=== PATIENT | male | born 1950 | race Caucasian/White ===

== ENCOUNTER 2018-02-16 10:24 | Outpatient (CLI) | payer OTHER ==
[2014-09-16 11:34] VITALS: BMI 20.7
== END 2018-02-16 10:25 | disposition home or self-care (01) ==
LOC: RHC-LAB 10:24
PROVIDERS: ATTEND Emergency Medicine
DX: K64.0 First degree hemorrhoids (principal); K62.5 Hemorrhage of anus and rectum; I10 Essential (primary) hypertension; F10.20 Alcohol dependence, uncomplicated; Z12.5 Encounter for screening for malignant neoplasm of prostate
CPT/HCPCS: 36415; 80053; 80061; 84443; 85025

== ENCOUNTER 2018-02-17 12:30 | Outpatient (CLI) ==
[2014-09-16 11:34] VITALS: BMI 20.7
--- NOTE | 2018-02-17 15:43 | DI ---
EXAM: PA and lateral views of the chest HISTORY: Smoking history COMPARISON: Chest Xray from 09/16/2014 FINDINGS: Lungs are clear with no lobar consolidation, failure, large effusion or significant atelec tasis. There is hyperexpansion of the lung jean baptiste. Cardiac and mediastinal silhouettes show no acute abnormality. No acute osseous or soft tissue abnormalities. There is an old left rib fracture which is healed. IMPRESSION: 1. No active disease. 2. Probable chronic obstructive pulmonary disease.
--- NOTE | 2018-02-17 16:03 | CT ---
EXAM: CT abdomen pelvis with contrast TECHNIQUE: Helical axial CT of the abdomen and pelvis was performed with contrast with coronal and s agittal reconstructions. COMPARISON: None HISTORY: Rectal bleeding FINDINGS: There is quite a bit of soft tissue thickening seen involving the rectum with a mass-like appearance. There is some edema also noted in the perirectal fat. There is no obstruction or ileus or free air or focal fluid collection noted. There are no pathologic lymph nodes seen. The liver, spleen, pancreas,and adrenal glands show no acute abnormality. There are pancreatic calcif ications consistent with chronic pancreatitis. Lung bases are well-aerated. There is no hiatal herni a. The gallbladder is normal with no stones or inflammation. There is no biliary or pancreatic ductal dilatation. There are no suspicious renal masses or large cysts and no hydronephrosis. There are no kidney stones . There are renal vascular calcifications seen on the left. Both ureters demonstrate normal course a nd caliber. There is no filling defect in the urinary bladder. There is prostatomegaly. The appendix is not definitely identified. There are multiple non inflamed colonic diverticula. Ther e are bilateral inguinal hernias. Hernia on the right contains fat wall the hernia on the left conta ins a few loops of bowel and fat with no obstruction or incarceration. There is extreme calcification of the aorta and pelvic vessels. There are no acute osseous abnormalities. IMPRESSION: 1. Probable rectal mass as described above. Recommend further evaluation. 2. Extremely advanced atherosclerosis. 3. Chronic pancreatitis. 4. Bilateral inguinal hernias. 5. Other findings as above. Unexpected finding (1)
== END 2018-02-17 12:31 | disposition home or self-care (01) ==
LOC: RAD 12:30
PROVIDERS: ATTEND Emergency Medicine
DX: K62.5 Hemorrhage of anus and rectum (principal); R10.84 Generalized abdominal pain

== ENCOUNTER 2018-04-27 08:51 | Outpatient (CLI) ==
[2014-09-16 11:34] VITALS: BMI 20.7
--- NOTE | 2018-04-27 11:46 | CT ---
EXAM: CT of the chest with contrast History: Rectal cancer. Comparison: CT abdomen pelvis 04/27/2018 Technique: Multiplanar CT images through the thorax were obtained following administration of IV cont rast Findings: Heart size is normal. Trace anterior pericardial fluid. Coronary calcifications. No tho racic aortic aneurysm. No axillary lymphadenopathy. 2.8 cm x 1.6 cm lymph node within the AP window of the mediastinum. No pathologically enlarged hilar lymph nodes. Emphysema. Consolidation. No pl eural fluid and no pneumothorax. 8 mm cavitary nodule within the left upper lobe. Details in the upper abdomen, please see dedicated CT abdomen pelvis done on the same day. No acute osseous abnormalities. Impression: 1. 8 mm cavitary nodule within the left upper lobe is suspicious for metastasis. 2. Abnormally enlarged mediastinal lymph node also suspicious for metastasis. 3. Emphysema. 4. Coronary artery disease
--- NOTE | 2018-04-27 11:58 | CT ---
EXAM: CT of the abdomen pelvis with contrast History: Rectal cancer. Comparison: Chest CT 04/27/2018, CT abdomen pelvis 02/17/2018 Technique: Multiplanar CT images through the abdomen pelvis were obtained following administration o f IV contrast Findings: For details in the lower lungs, please see dedicated CT chest done on the same day. No ac [place] osseous abnormalities. Atherosclerotic vascular calcifications. No discrete gallstones identified by CT. No focal liver is . No change in the pancreatic calcifications consistent with chronic pancreatitis. 8 mm cystic lesi on within the pancreatic head is not clearly seen on the prior study. Adrenal glands are unremarkabl e. No renal masses. The liver is probably fatty. A few borderline dilated loops of small bowel but no specific evidence for small bowel obstruction. Stable nonspecific mild thickening of the anterior bladder wall. Free air and no ascites. Fat-containing right inguinal hernia. Prostate is mildly en larged. 3.9 cm x 6.0 cm irregularly enhancing low rectal tumor extending to involve the anal region. No pathologically enlarged lymph nodes are seen within the abdomen or pelvis. Impression: 1. Malignant appearing low rectal tumor. 2. Chronic pancreatitis. 3. No lymphadenopathy within the abdomen or pelvis. 4. 8 mm cystic lesion within the pancreatic head was not clearly seen on the prior study. Close att ention to on follow-up recommended. 5. Probable hepatic steatosis. 6. No change in the mild anterior bladder wall thickening. 7. A few borderline dilated loops of small bowel but no specific evidence for bowel obstruction. 8. Atherosclerotic vascular disease. 9. Mild prostatic enlargement
== END 2018-04-27 08:52 | disposition home or self-care (01) ==
LOC: RAD 08:51
PROVIDERS: ATTEND Internal Medicine Medical Oncology
DX: C20 Malignant neoplasm of rectum (principal); R63.4 Abnormal weight loss; R93.5 Abnormal findings on diagnostic imaging of other abdominal regions, including retroperitoneum; K62.89 Other specified diseases of anus and rectum; K62.9 Disease of anus and rectum, unspecified; K62.5 Hemorrhage of anus and rectum; R14.3 Flatulence; F10.10 Alcohol abuse, uncomplicated; Z72.0 Tobacco use; Z87.19 Personal history of other diseases of the digestive system
CPT/HCPCS: 36415; 80053; 80074; 81001; 82378; 82607; 82746; 83540; 83550; 84443; 85025; 85610; 85730; 87389

== ENCOUNTER 2018-05-27 09:19 | Outpatient (CLI) ==
[2014-09-16 11:34] VITALS: BMI 20.7
== END 2018-05-27 09:20 | disposition home or self-care (01) ==
LOC: LAB 09:19
PROVIDERS: ATTEND Internal Medicine Medical Oncology
DX: Z01.810 Encounter for preprocedural cardiovascular examination (principal); Z01.812 Encounter for preprocedural laboratory examination; C20 Malignant neoplasm of rectum; R59.0 Localized enlarged lymph nodes; I10 Essential (primary) hypertension
CPT/HCPCS: 36415; 80053; 85025; 93005; 93010

== ENCOUNTER 2019-01-05 00:44 | Emergency (ER) ==
[2019-01-05 00:56] VITALS: BP 169/83; TEMP 97.8; BMI 20.8
--- NOTE | 2019-01-05 01:20 | ED.PDOC ---
General ED Provider: Dr. JT PEÑA-ER Chief Complaint: Non-specific Complaint Stated Complaint: pulled out needle for chemo for rectal cancer Time Seen by Physician: 00:50 Mode of Arrival: Walk-In Information Source: Patient Exam Limitations: No limitations Primary Care Provider: TAMEKA BYERS Nursing and Triage Documentation Reviewed and Agree: Yes Does patient meet sepsis criteria?: No System Inflammatory Response Syndrome: Not Applicable Sepsis Protocol: For patient's 13 years and over: Temp is 96.8 and below OR 101 and greater Pulse >90 BPM Resp >20/minute Acutely Altered Mental Status Are patient's symptoms suggestive of a new infection, such as: -Pneumonia -Skin, Soft Tissue -Endocarditis -UTI -Bone, Joint Infection -Implantable Device -Acute Abdominal Infection -Wound Infection -Meningitis -Blood Stream Catheter Infection -Unknown Skin Complaint Exam - Skin/Soft Tissue Complaint/Exam Onset/Duration: this morning Symptoms Are: Still present Initial Severity: Mild Current Severity: Mild Character: Denies: Redness, Swelling, Raised, Painful Aggravating: Reports: None Alleviating: Reports: None Associated Signs and Symptoms: Denies: Fever, Chills, Itching, Drainage, Bruising, Tenderness, Red streaks, Joint swelling Related Surgical History: Reports: In-Dwelling Med. Device Recent Exposure to Others w/Similar Symptoms: No Skin Findings: Present: Normal findings Joint Tenderness Present: No Review of Systems - Review Of Systems Constitutional: Reports: No symptoms Eyes: Reports: No symptoms Ears, Nose, Mouth, Throat: Reports: No symptoms Respiratory: Reports: No symptoms Cardiac: Reports: No symptoms GI: Reports: No symptoms : Reports: No symptoms Musculoskeletal: Reports: No symptoms Skin: Reports: No symptoms Neurological: Reports: No symptoms Endocrine: Reports: No symptoms Hematologic/Lymphatic: Reports: No symptoms All Other Systems: Reviewed and Negative Past Medical History - Past Medical History Previously Healthy: Yes Endocrine: Reports: Unknown Cardiovascular: Reports: Unknown Respiratory: Reports: Unknown Hematological: Reports: Unknown Gastrointestinal: Reports: Unknown Genitourinary: Reports: Unknown Neuro/Psych: Reports: Unknown Musculoskeletal: Reports: Unknown Cancer: Reports: Unknown - Surgical History General Surgical History: Reports: Unknown - Family History Family History: Reports: Unknown - Social History Smoking Status: Current every day smoker, Light tobacco smoker Hx Substance Use: No Alcohol Screening: Occasionally - Immunizations Tetanus Shot up to Date: No (DOES NOT TAKE) Physical Exam - Physical Exam Appearance: Well-appearing, No pain distress, Well-nourished Eyes: BECCA, EOMI, Conjunctiva clear ENT: Ears normal, Nose normal, Oropharynx normal Neck: Supple Respiratory: Airway patent, Breath sounds clear, Breath sounds equal, Respirations nonlabored Cardiovascular: RRR, Pulses normal, No rub, No murmur GI/: Soft, Nontender, No masses, Bowel sounds normal, No Organomegaly Musculoskeletal: Normal strength, ROM intact, No edema, No calf tenderness Skin: Warm, Dry, Normal color Neurological: Sensation intact, Motor intact, Reflexes intact, Cranial nerves intact, Alert, Oriented Psychiatric: Affect appropriate, Mood appropriate Critical Care Note - Critical Care Note Total Time (mins): 0 Course - Course Orders, Labs, Meds: Orders Category Date Time Status Port [ED IV/MEDIPORT/POWERPORT] .ONCE EMERGENCY 01/05/19 01:21 Active 0.9 % Sodium Chloride [Saline Flush] MEDS 01/05/19 01:21 Discontinued 1 syr IVF PRN PRN Medications Discontinued Medications Generic Name Dose Route Start Last Admin Trade Name Freq PRN Reason Stop Dose Admin Sodium Chloride 1 syr 01/05/19 01:21 Saline Flush IVF PRN PRN To flush IV Vital Signs: Temp Pulse Resp BP Pulse Ox 01/05/19 00:45 97.8 F 102 H 20 169/83 H 97 Departure - Departure Time of Disposition: 01:20 Disposition: HOME SELF-CARE Discharge Problem: Rectal cancer Instructions: Colorectal Cancer (DC) Condition: Stable Pt referred to PMD for follow-up: Yes IPMP verified?: No Additional Instructions: f/u with oncologist Allergies/Adverse Reactions: Allergies Tetanus Vaccines and Toxoid [Tetanus Vaccines & Toxoid] Adverse Reaction ( Verified 01/05/19 00:54) Home Medications: Ambulatory Orders Aspirin 81 mg PO BEDTIME 09/27/14 Albuterol Sulfate [Ventolin Hfa] 2 puff IH Q4H PRN 01/05/19 Fluticasone Propionate [Flonase Allergy Relief] 9.9 ml NS DIRECTED PRN Oxycodone HCl/Acetaminophen [Oxycodon-Acetaminophen 7.5-325] 1 each PO Q6H PRN 01/05/19 Disposition Discussed With: Patient, Family
== END 2019-01-05 01:29 | disposition home or self-care (01) ==
LOC: ED 00:44
DX: Z45.2 Encounter for adjustment and management of vascular access device (principal); C20 Malignant neoplasm of rectum; F17.210 Nicotine dependence, cigarettes, uncomplicated
CPT/HCPCS: 99282